=== PATIENT | male | born 1940 | race Caucasian/White ===

== ENCOUNTER → 2016-07-02 | Outpatient (CLI) | payer MEDICARE ==
--- NOTE | 2016-07-02 13:59 | REP ---
CHEST CT WITHOUT CONTRAST: LOW-DOSE SCREENING STUDY. HISTORY: Tobacco use history. Lung cancer screening. COMPARISON: Chest x-ray, July 02, 2016. FINDINGS: There is a right lower lobe calcified benign granuloma visible on image number 75 of today's exam. This is seen radiographically. There is also a 7 mm noncalcified pulmonary nodule in the left lower lobe on image number 90 of today's examination. This is directly above or possibly on the dome of the diaphragm. This merits followup. No other abnormal pulmonary parenchymal density is seen. Vascular calcification is noted. This includes left coronary artery vascular calcification. IMPRESSION: Positive lung cancer screening CT study. 7 mm noncalcified pulmonary nodule left lower lobe. LI-RADS category 3 study. 6-month followup chest CT recommended. Signed by Juan Bob MD 07/02/2016 05:00 P
== END ==
LOC: M RAD 12:21
PROVIDERS: ATTEND Nurse Practitioner Adult Health
DX: Z12.2 Encounter for screening for malignant neoplasm of respiratory organs (principal); R91.8 Other nonspecific abnormal finding of lung field; Z87.891 Personal history of nicotine dependence

== ENCOUNTER 2016-09-08 11:15 | Outpatient (RCR) | payer MEDICARE | END 2016-09-10 | LOC: M CR 11:15 | PROVIDERS: ATTEND Internal Medicine Cardiovascular Disease | DX: Z51.89 Encounter for other specified aftercare (principal); Z98.1 Arthrodesis status ==

== ENCOUNTER → 2016-10-11 | Outpatient (RCR) | payer MEDICARE | LOC: M CR 09-13 08:37 | PROVIDERS: ATTEND Internal Medicine Cardiovascular Disease | DX: Z51.89 Encounter for other specified aftercare (principal); Z98.1 Arthrodesis status ==

== ENCOUNTER 2016-11-03 12:50 | Outpatient (RCR) | payer MEDICARE | END 2016-11-11 | LOC: M CR 12:50 | PROVIDERS: ATTEND Internal Medicine Cardiovascular Disease | DX: Z51.89 Encounter for other specified aftercare (principal); Z98.1 Arthrodesis status ==

== ENCOUNTER → 2016-12-28 | Outpatient (CLI) | payer MEDICARE ==
--- NOTE | 2016-12-28 14:10 | REP ---
CT of the chest without IV contrast: Comparison is the low-dose lung screening CT dated 07/02/2016. On the comparison study there was a 7 mm noncalcified lung nodule adjacent to the dome of the left hemidiaphragm. On the study today this nodule is again identified and again measures 7 mm and is unchanged in size. There is a calcified granuloma in the left lower lobe, also unchanged. There are no other masses or nodules. There are no acute infiltrates or effusions are There is no mediastinal adenopathy. The study is insensitive for hilar adenopathy in the absence of IV contrast. No axillary adenopathy. Thoracic aorta is unremarkable. Cardiac size is normal. There is calcified atheroma in the coronary arteries. In the upper abdomen there is no adrenal mass. The visualized upper abdominal contents demonstrate 2.7 cm subcapsular Cine lesion laterally in the right lobe of the liver, nonspecific. Follow-up MRI is recommended. Impression: There has been no change in the size of the left lower lobe lung nodule. This converts this nodule to a category 2 lesion, probability malignancy is less than 1%. Follow-up CT is recommended in 12 months. There is a 2.7 cm low density lesion subcapsular in the right lobe of the liver, nonspecific on this study without IV contrast. Hepatic MRI follow-up is recommended. Signed by Ronnie Dan MD 12/28/2016 02:01 P
== END ==
LOC: M RAD 08:05
PROVIDERS: ATTEND Nurse Practitioner Adult Health
DX: R91.1 Solitary pulmonary nodule (principal)

== ENCOUNTER 2017-07-07 06:06 | Day surgery (SDC) | payer MEDICARE ==
[~2017-07-07 06:06] MED LIST: ACETAMINOPHEN 325 MG TAB PO; OFLOXACIN 0.3 % (OCUFLOX) OPTH SOL 5ML OS; PHENYLEPHRINE 2.5% OPHTH SOL 2ML OS; PROPARACAINE 0.5% OPHTH SOL 15ML OS; TROPICAMIDE 1% OPHTH SOLN 2ML OS
[2017-07-07] MEDS ORDERED: CYCLOPENTOLATE 2% OPHTH SOLN 2ML BTL As Ordered (06:21)
[2017-07-07] MEDS ORDERED: TROPICAMIDE 1% OPHTH SOLN 2ML As Ordered (06:21)
[2017-07-07] MEDS ORDERED: PHENYLEPHRINE 2.5% OPHTH SOL 2ML As Ordered (06:21)
[2017-07-07] MEDS ORDERED: OFLOXACIN 0.3 % (OCUFLOX) OPTH SOL 5ML As Ordered (06:21)
[2017-07-07] MEDS: PROPARACAINE 0.5% OPHTH SOL 15ML OS (06:36)
[2017-07-07] MEDS: OFLOXACIN 0.3 % (OCUFLOX) OPTH SOL 5ML OS (06:37)
[2017-07-07] MEDS: PHENYLEPHRINE 2.5% OPHTH SOL 2ML OS (06:38)
[2017-07-07] MEDS ORDERED: TROPICAMIDE 1% OPHTH SOLN 2ML OS (07:00)
[2017-07-07] MEDS ORDERED: MIDAZOLAM INJ 2 MG/2 ML VIAL (J2250) As Ordered (07:22)
[2017-07-07] MEDS ORDERED: fentaNYL 100 MCG/2 ML INJECTION (J3010) As Ordered (07:22)
[2017-07-07] MEDS: POVIDONE-IODINE 5% OPHTH PREP SOL 30ML As Ordered (07:54)
[2017-07-07] MEDS: DUOVISC (0.50ML VISCOAT/0.55ML PROVISC) OPHTH KIT As Ordered ×2 (07:54→07:55)
[2017-07-07] MEDS: BALANCED SALT IRRIGATION SOLUTION 500ML BAG (FOR OR EYE MACHINE) As Ordered (07:54)
[2017-07-07] MEDS: CEFUROXIME 1MG/0.1ML INTRACAMERAL INJ As Ordered (07:55)
[2017-07-07] MEDS: LIDOCAINE 0.75%/EPINEPHRINE 0.025% IN BSS 1ML SYR INTRACAMERAL (OR ONLY) As Ordered (07:55)
[2017-07-07] MEDS ORDERED: TRIMETHOBENZAMIDE 300 MG CAP PO (08:45)
== END 2017-07-07 08:53 | disposition home or self-care (01) ==
LOC: M SDC 06:06
DX: H25.12 Age-related nuclear cataract, left eye (principal); H57.03 Miosis; H40.9 Unspecified glaucoma; R07.9 Chest pain, unspecified; I10 Essential (primary) hypertension; E78.5 Hyperlipidemia, unspecified; M15.0 Primary generalized (osteo)arthritis; L57.0 Actinic keratosis; I25.10 Atherosclerotic heart disease of native coronary artery without angina pectoris; N52.9 Male erectile dysfunction, unspecified; R06.83 Snoring; N40.0 Benign prostatic hyperplasia without lower urinary tract symptoms; R73.01 Impaired fasting glucose; Z79.899 Other long term (current) drug therapy; Z79.82 Long term (current) use of aspirin; Z87.891 Personal history of nicotine dependence; Z86.010 Personal history of colon polyps; Z79.01 Long term (current) use of anticoagulants
CPT/HCPCS: 66982

== ENCOUNTER 2017-08-01 06:26 | Day surgery (SDC) | payer MEDICARE ==
[2017-08-01] MEDS: NS 1,000 ML IV ×2 (07:11)
[2017-08-01] MEDS ORDERED: LIDOCAINE 2% INJ 100 MG/5 ML SDV (FOR ANES.) As Ordered (07:33)
[2017-08-01] MEDS ORDERED: PROPOFOL 500 MG/50 ML VIAL As Ordered (07:33)
== END 2017-08-01 08:26 | disposition home or self-care (01) ==
LOC: M OPP 06:26
DX: Z12.11 Encounter for screening for malignant neoplasm of colon (principal); Z85.038 Personal history of other malignant neoplasm of large intestine; Z86.010 Personal history of colon polyps; K57.30 Diverticulosis of large intestine without perforation or abscess without bleeding; K64.8 Other hemorrhoids; I25.10 Atherosclerotic heart disease of native coronary artery without angina pectoris; Z95.5 Presence of coronary angioplasty implant and graft; I10 Essential (primary) hypertension; E78.5 Hyperlipidemia, unspecified; M19.90 Unspecified osteoarthritis, unspecified site; R06.83 Snoring; N40.1 Benign prostatic hyperplasia with lower urinary tract symptoms; Z79.82 Long term (current) use of aspirin; Z79.899 Other long term (current) drug therapy
CPT/HCPCS: G0105

== ENCOUNTER → 2018-07-13 | Outpatient (CLI) | payer MEDICARE ==
[~2018-07-13] MED LIST changes: -ACETAMINOPHEN 325 MG TAB PO; +ALPH0.156 OU; +AMLO5TAB6 PO; +ASPI81TA26 PO; +BIMA01SOL OU; +BRIN1OPH OU; +CLOP75TA2 PO; +COEN100C PO; +ISOS30TA4 PO; +LISI10TA2 PO; +MULT1TAB10 PO; -OFLOXACIN 0.3 % (OCUFLOX) OPTH SOL 5ML OS; +OMEP40CA2 PO; -PHENYLEPHRINE 2.5% OPHTH SOL 2ML OS; +PRESCAP PO; -PROPARACAINE 0.5% OPHTH SOL 15ML OS; +ROSU20TA4 PO; -TROPICAMIDE 1% OPHTH SOLN 2ML OS; +TURM500C PO
--- NOTE | 2018-07-13 16:51 | REP ---
CT CHEST WITHOUT IV CONTRAST: CT chest performed without IV contrast. COMPARISON: Prior study of 12/28/2016. There is mild bronchiectasis in both lower lobes. Mild biapical pleural and parenchymal scarring is seen. There is a calcified granuloma in the right lower lobe. 9 x 6 mm nodule along the left diaphragm is stable. This only measures about 3 mm in craniocaudal dimension. There are mild atherosclerotic calcifications of the thoracic aorta. Small calcified subcarinal and right hilar lymph nodes are seen. The heart is normal in size. There is trace pericardial fluid/thickening. No pleural effusion is seen. There is a small hiatal hernia. A few tiny calcified granulomas are seen in the spleen. IMPRESSION: Benign nodule along the left diaphragm has remained stable for two years. Other chronic changes as described above. Electronically Signed by Ronnie Bowie MD 07/14/2018 12:52 P
== END ==
LOC: M RAD 07:53
PROVIDERS: ATTEND Nurse Practitioner Adult Health
DX: I10 Essential (primary) hypertension (principal); R91.1 Solitary pulmonary nodule

== ENCOUNTER → 2022-08-25 | Outpatient (REF) | payer MEDICARE ==
[~2022-08-25] MED LIST changes: +AMLO1TAB24 PO; -AMLO5TAB6 PO; -COEN100C PO; +COEN100C4 PO; +ISOS1TAB35 PO; -ISOS30TA4 PO; -LISI10TA2 PO; +LISI10TA24 PO; -OMEP40CA2 PO; +OMEP40CA4 PO; -ROSU20TA4 PO; +ROSU20TA61 PO
== END ==
LOC: M SFHCDERM 12:59
PROVIDERS: ATTEND Physician Assistant
DX: L57.0 Actinic keratosis (principal)

== ENCOUNTER → 2023-09-13 | Outpatient (REF) | payer MEDICARE | LOC: M SFHCDERM 16:29 | PROVIDERS: ATTEND Dermatology | DX: C44.629 Squamous cell carcinoma of skin of left upper limb, including shoulder (principal) ==

== ENCOUNTER → 2023-12-28 | Outpatient (REF) | payer MEDICARE ==
[~2023-12-28] MED LIST changes: -ROSU20TA61 PO; +ROSU20TA86 PO
== END ==
LOC: M SFHCDERM 17:53
PROVIDERS: ATTEND Physician Assistant
DX: L82.1 Other seborrheic keratosis (principal)